=== PATIENT | female | born 1945 | race Caucasian/White ===

== ENCOUNTER → 2016-07-11 | Outpatient (CLI) | payer MEDICARE ==
--- NOTE | 2016-07-12 11:08 | MM ---
Reason for exam: screening (asymptomatic). Last mammogram was performed 1 year and 8 months ago. History: Patient is postmenopausal. Took hormonal contraceptives for 15 years beginning at age 18. Took estrogen for 5 years beginning at age 43. Took progesterone for 5 years beginning at age 43. Physical Findings: A clinical breast exam by your physician is recommended on an annual basis and results should be correlated with mammographic findings. MG 3D Screening Mammo W/Cad Bilateral CC and MLO view(s) were taken. Prior study comparison: November 16, 2014, bilateral MG screening mammo w CAD. September 29, 2013, bilateral MG screening mammo w CAD. The breast tissue is almost entirely fat. No significant changes when compared with prior studies. ASSESSMENT: Benign, BI-RAD 2 RECOMMENDATION: Routine screening mammogram of both breasts in 1 year.
== END | disposition home or self-care (01) ==
LOC: RADMAMWWP 12:29
PROVIDERS: ATTEND Family Medicine
DX: Z12.31 Encounter for screening mammogram for malignant neoplasm of breast (principal)
CPT/HCPCS: 77063; G0202

== ENCOUNTER 2016-11-13 13:07 | Inpatient (IN) | payer MEDICARE ==
[2016-11-13] MEDS ORDERED: SODIUM CHLORIDE 0.9% 500 ML IV STA (13:51)
[2016-11-13] MEDS ORDERED: ONDANSETRON 4 MG/2 ML VIAL IVP STA (13:51)
[2016-11-13 14:46] LABS: INR 1.2 (<1.2); Partial Thromboplastin Time 30.8 sec (22.0-30.0); Prothrombin Time 11.7 sec (9.0-12.0)
[2016-11-13 14:48] LABS: Basophils % (A) 1 %; CH 32.8; CHCM 33.1; Eosinophils % (A) 0 %; HCT 42.5 % (34.0-46.0); HDW 2.03; HGB 14.2 gm/dL (11.4-16.0); Luc # (Auto) 0.21; Luc % (Auto) 4; Lymphocytes # (A) 0.8 k/uL (1.0-4.8); Lymphocytes % (A) 14 %; MCH 33.1 pg (25.0-35.0); MCHC 33.3 g/dL (31.0-37.0); MCV 99.5 fL (80.0-100.0); Mean Platelet Volume 7.7; Monocytes # (A) 0.4 k/uL (0-1.0); Monocytes % (A) 7 %; Neutrophils # (A) 4.1 k/uL (1.3-7.7); Neutrophils % (A) 74 %; RBC 4.27 m/uL (3.80-5.40); RDW 12.8 % (11.5-15.5); WBC 5.5 k/uL (3.8-10.6); WBC (Perox) 5.63
[2016-11-13 14:59] LABS: Calcium 9.7 mg/dL (8.4-10.2); Potassium 4.1 mmol/L (3.5-5.1); Total Bilirubin 0.6 mg/dL (0.2-1.3); Total Protein 7.7 g/dL (6.3-8.2)
--- NOTE | 2016-11-13 15:14 | XR ---
EXAMINATION TYPE: XR KUB DATE OF EXAM: 11/13/2016 3:08 PM CLINICAL HISTORY: Weakness with nausea and vomiting. TECHNIQUE: 2 upright KUB images of the abdomen are obtained. COMPARISON: CT abdomen and pelvis March 02, 2015. FINDINGS: Scattered gas is seen in non-distended small bowel loops. Gas is in non-distended colon. Th ere is levoconvex scoliosis. There is multilevel spurring and disc space narrowing in the spine. No p neumoperitoneum is appreciated. Cardiomegaly is noted. Overlying vascular calcification is redemonstr ated. IMPRESSION: Overall nonobstructive bowel gas pattern.
[2016-11-13] MEDS: SODIUM CHLORIDE 0.9% 1,000 ML IV SCH (15:38)
[2016-11-13] MEDS ORDERED: MAGNESIUM SULFATE-D5W PMX 1 GM in DEXTROSE/WATER 1 100ML.BAG IVPB ONE (15:38)
[2016-11-13] MEDS ORDERED: NALOXONE 0.4 MG/ML 1 ML VIAL IV PRN (15:40)
--- NOTE | 2016-11-13 15:55 | ED ---
General Adult HPI - General Chief complaint: Nausea/Vomiting/Diarrhea Stated complaint: Body Ache Time Seen by Provider: 11/13/16 13:40 Source: patient, family, RN notes reviewed Mode of arrival: wheelchair Limitations: physical limitation - History of Present Illness Initial comments: 71-year-old female presents with a one-day history of nausea and loose diarrhea from her ostomy. She has a history of ischemic bowel status post resection. She also reports chills, denies fever. She hasn't had any recent travel or recent antibiotics. Denies vomiting. Patient states she has felt generalized weakness and myalgias. She has a past medical history of A. fib, and DVT and is currently on Ahlquist. She also has history diabetes and hypothyroidism. - Related Data Home Medications Medication Instructions Recorded Confirmed Atenolol [Atenolol] 25 mg PO HS 11/05/13 11/13/16 Simvastatin [Simvastatin] 10 mg PO HS 11/05/13 11/13/16 Acetaminophen Tab [Tylenol Tab] 1,000 mg PO Q6HR PRN 02/16/15 11/13/16 Ascorbic Acid [Vitamin C] 1,000 mg PO MOWEFR@1200 02/16/15 11/13/16 Cholecalciferol [Vitamin D3] 1,000 unit PO MOWEFR@1200 02/16/15 11/13/16 Melatonin 5 mg PO HS 02/16/15 11/13/16 Apixaban [Eliquis] 5 mg PO BID 11/13/16 11/13/16 Biotin 5 mg PO MOWEFR@1200 11/13/16 11/13/16 Levothyroxine Sodium [Synthroid] 112 mcg PO DAILY 11/13/16 11/13/16 Allergies Allergy/AdvReac Type Severity Reaction Status Date / Time Sulfa (Sulfonamide Allergy Rash/Hives Verified 11/13/16 14:51 Antibiotics) Review of Systems ROS Statement: Those systems with pertinent positive or pertinent negative responses have been documented in the HPI. ROS Other: All systems not noted in ROS Statement are negative. Past Medical History Past Medical History: Atrial Fibrillation, Diabetes Mellitus, Deep Vein Thrombosis (DVT), Eye Disorder, Hearing Disorder / Deafness, Hyperlipidemia, Hypertension, Osteoarthritis (OA), Thyroid Disorder Additional Past Medical History / Comment(s): NO RX FOR NIIDM SINCE 1998 EST. LT CATARACT EXC 10/2013 History of Any Multi-Drug Resistant Organisms: None Reported Past Surgical History: Bowel Resection Additional Past Surgical History / Comment(s): LT CATARACT EXC 10/2013. TOTAL LT KNEE; THYROIDECTOMY, Right total knee replacement Past Anesthesia/Blood Transfusion Reactions: No Reported Reaction Past Psychological History: No Psychological Hx Reported Smoking Status: Former smoker Past Alcohol Use History: Daily Past Drug Use History: None Reported - Past Family History Mother Family Medical History: CVA/TIA Father Family Medical History: Cancer General Exam Limitations: physical limitation General appearance: alert, in no apparent distress Head exam: Present: atraumatic, normocephalic Eye exam: Present: normal appearance, PERRL ENT exam: Present: mucous membranes dry Neck exam: Present: normal inspection, full ROM Respiratory exam: Present: normal lung sounds bilaterally. Absent: respiratory distress Cardiovascular Exam: Present: regular rate, irregular rhythm GI/Abdominal exam: Present: soft, other (Ostomy full of watery diarrhea). Absent: distended, tenderness, guarding Neurological exam: Present: alert, oriented X3 Psychiatric exam: Present: normal affect, normal mood Skin exam: Present: warm, dry. Absent: cyanosis, diaphoretic Course Vital Signs 11/13/16 13:14 Temperature 97.8 F Pulse Rate 108 H Respiratory 16 Rate Blood Pressure 141/85 O2 Sat by Pulse 96 Oximetry - Reevaluation(s) Reevaluation #1: 11/13/16 15:51 Patient is given antiemetics and IV fluids. On reevaluation she is feeling somewhat better. EKG Findings - EKG Comments: EKG Findings:: EKG shows atrial fibrillation, with a ventricular rate of 95, QRS duration 98, QTC 469 Medical Decision Making - Medical Decision Making 71-year-old female presenting with nausea and diarrhea. Patient does have an ostomy and reports loose diarrhea progressing to water over the past 24 hours. She also reports subjective chills, and body aches. No known sick contacts on history. Abdominal examination is unremarkable. Laboratory studies reveal mild hyponatremia 129, magnesium is 1.4 which is low. On reevaluation the patient is feeling somewhat better but still feels weak, she does appear dehydrated on exam and given the left foot abnormality she will be admitted for IV hydration, magnesium replacement, and further evaluation and treatment. Urinalysis is pending at the time of this dictation. - Lab Data Result diagrams: 11/13/16 14:23 11/13/16 14:23 Lab Results 11/13/16 11/13/16 11/13/16 Range/Units 14:22 14:23 14:23 WBC 5.5 (3.8-10.6) k/uL RBC 4.27 (3.80-5.40) m/uL Hgb 14.2 (11.4-16.0) gm/dL Hct 42.5 (34.0-46.0) % MCV 99.5 (80.0-100.0) fL MCH 33.1 (25.0-35.0) pg MCHC 33.3 (31.0-37.0) g/dL RDW 12.8 (11.5-15.5) % Plt Count 168 (150-450) k/uL Neutrophils % 74 % Lymphocytes % 14 % Monocytes % 7 % Eosinophils % 0 % Basophils % 1 % Neutrophils # 4.1 (1.3-7.7) k/uL Lymphocytes # 0.8 L (1.0-4.8) k/uL Monocytes # 0.4 (0-1.0) k/uL Eosinophils # 0.0 (0-0.7) k/uL Basophils # 0.0 (0-0.2) k/uL PT (9.0-12.0) sec INR (<1.2) APTT (22.0-30.0) sec Sodium 129 L (137-145) mmol/L Potassium 4.1 (3.5-5.1) mmol/L Chloride 96 L (98-107) mmol/L Carbon Dioxide 19 L (22-30) mmol/L Anion Gap 14 mmol/L BUN 19 H (7-17) mg/dL Creatinine 1.19 H (0.52-1.04) mg/dL Est GFR (MDRD) Af Amer 54 (>60 ml/min/1.73 sqM) Est GFR (MDRD) Non-Af 44 (>60 ml/min/1.73 sqM) Glucose 97 (74-99) mg/dL Calcium 9.7 (8.4-10.2) mg/dL Magnesium 1.4 L (1.6-2.3) mg/dL Total Bilirubin 0.6 (0.2-1.3) mg/dL AST 31 (14-36) U/L ALT 29 (9-52) U/L Alkaline Phosphatase 73 (38-126) U/L Troponin I (0.000-0.034) ng/mL Total Protein 7.7 (6.3-8.2) g/dL Albumin 4.8 (3.5-5.0) g/dL Amylase 39 (30-110) U/L Lipase 103 (23-300) U/L 11/13/16 11/13/16 Range/Units 14:23 14:23 WBC (3.8-10.6) k/uL RBC (3.80-5.40) m/uL Hgb (11.4-16.0) gm/dL Hct (34.0-46.0) % MCV (80.0-100.0) fL MCH (25.0-35.0) pg MCHC (31.0-37.0) g/dL RDW (11.5-15.5) % Plt Count (150-450) k/uL Neutrophils % % Lymphocytes % % Monocytes % % Eosinophils % % Basophils % % Neutrophils # (1.3-7.7) k/uL Lymphocytes # (1.0-4.8) k/uL Monocytes # (0-1.0) k/uL Eosinophils # (0-0.7) k/uL Basophils # (0-0.2) k/uL PT 11.7 (9.0-12.0) sec INR 1.2 H (<1.2) APTT 30.8 H (22.0-30.0) sec Sodium (137-145) mmol/L Potassium (3.5-5.1) mmol/L Chloride (98-107) mmol/L Carbon Dioxide (22-30) mmol/L Anion Gap mmol/L BUN (7-17) mg/dL Creatinine (0.52-1.04) mg/dL Est GFR (MDRD) Af Amer (>60 ml/min/1.73 sqM) Est GFR (MDRD) Non-Af (>60 ml/min/1.73 sqM) Glucose (74-99) mg/dL Calcium (8.4-10.2) mg/dL Magnesium (1.6-2.3) mg/dL Total Bilirubin (0.2-1.3) mg/dL AST (14-36) U/L ALT (9-52) U/L Alkaline Phosphatase (38-126) U/L Troponin I <0.012 (0.000-0.034) ng/mL Total Protein (6.3-8.2) g/dL Albumin (3.5-5.0) g/dL Amylase (30-110) U/L Lipase (23-300) U/L Disposition Clinical Impression: Dehydration, Hyponatremia, Hypomagnesemia Disposition: ADMITTED IP TO THIS [facility] Condition: Stable Referrals: Jose G Rebolledo MD [Primary Care Provider] - 1-2 days Decision to Admit Reason: Admit from EC Decision Date: 11/13/16 Decision Time: 15:54
[2016-11-13 16:32] LABS: Appearance,Urine Clear (Clear); Bilirubin,Urine Negative (Negative); Glucose,Urine (UA) Negative (Negative); Ketones,Urine Trace (Negative); Leukocyte Esterase,Urine Small (Negative); Nitrite,Urine Negative (Negative); PH, Urine 5.5 (5.0-8.0); Particle Count 2159; Protein,Urine Trace (Negative); RBC,Urine 1 /hpf (0-5); Specific Gravity,Urine 1.005 (1.001-1.035); Squamous Epithelial Cell,Urine 1 /hpf (0-4); UA Billing (MACRO vs. MICRO) MICRO; Urobilinogen,Urine <2.0 mg/dL (<2.0); WBC,Urine 1 /hpf (0-5)
[2016-11-13] MEDS ORDERED: ACETAMINOPHEN TAB 500 MG TAB PO STA (19:05)
[2016-11-13] MEDS: MELATONIN 5 MG TABLET PO SCH (20:50)
[2016-11-13] MEDS: APIXABAN 5 MG TAB PO SCH (20:50)
[2016-11-13] MEDS: ATENOLOL 25 MG TAB PO SCH ×2 (20:50→20:57)
[2016-11-14] MEDS: SODIUM CHLORIDE 0.9% 1,000 ML IV SCH ×4 (04:02→20:19)
[2016-11-14] MEDS: LEVOTHYROXINE 112 MCG TAB PO SCH (06:09)
[2016-11-14 07:55] LABS: Aty Lym Flag Slight; CH 32.6; CHCM 32.7; HCT 41.7 % (34.0-46.0); HDW 2.09; HGB 14.2 gm/dL (11.4-16.0); MCH 34.1 pg (25.0-35.0); MCV 100.3 fL (80.0-100.0); Mean Platelet Volume 7.7; RBC 4.16 m/uL (3.80-5.40); RDW 12.8 % (11.5-15.5); WBC 4.9 k/uL (3.8-10.6); WBC (Perox) 5.27
[2016-11-14 08:14] LABS: ALT 36 U/L (9-52); AST 39 U/L (14-36); Alkaline Phosphatase 61 U/L (38-126); Anion Gap 12 mmol/L; Blood Urea Nitrogen 18 mg/dL (7-17); Calcium 9.4 mg/dL (8.4-10.2); Carbon Dioxide 21 mmol/L (22-30); Chloride 97 mmol/L (98-107); Glucose 91 mg/dL (74-99); Magnesium 1.7 mg/dL (1.6-2.3); Non-African American GFR(MDRD) 51 (>60 ml/min/1.73 sqM); Potassium 4.3 mmol/L (3.5-5.1); Sodium 130 mmol/L (137-145); Total Bilirubin 0.5 mg/dL (0.2-1.3); Total Protein 7.1 g/dL (6.3-8.2)
[2016-11-14 08:49] LABS: Add Differential Manual Differential
[2016-11-14 08:51] LABS: Nucleated Red Blood Cells 0 /100 WBC (0-0); Total Cells Counted 100
[2016-11-14 08:52] LABS: Manual Review Performed; RBC Morphology Normal
[2016-11-14] MEDS: APIXABAN 5 MG TAB PO SCH ×2 (09:41→20:18)
[2016-11-14] MEDS: ACETAMINOPHEN TAB 325 MG TAB PO PRN (11:16)
[2016-11-14] MEDS: CHOLESTYRAMINE (WITH SUGAR) 4 GM PACKET PO SCH ×2 (14:15→18:34)
--- NOTE | 2016-11-14 16:58 | P.HPIM ---
History of Present Illness H&P Date: 11/13/16 Chief Complaint: Nausea, diarrhea and generalized weakness 71-year-old female presents with a past medical history of A. fib, and DVT and is currently on eliquis, diabetes and hypothyroidism came to ER with c/o one-day history of nausea and loose diarrhea from her ostomy. She has a history of ischemic bowel status post resection. She also reports chills, denies fever. She hasn't had any recent travel or recent antibiotics. Denied any unusual food intake. Denies vomiting. Patient states she has felt generalized weakness and myalgias. Review of Systems Constitutional: Patient denies any fever or chills . generalized weakness and fatigue Abdomen: Patient . Doesn't have nausea and diarrhea in the colostomy bag,. No abdominal pain Cardiovascular: Patient denies any chest pain or short of breath no palpitations. Respiratory: patient denied any cough is from production. No shortness of breath Neurologic: Patient denied any numbness or tingling headache. Musculoskeletal: Patient denies any complaints of joint swelling or deformity. Skin: Negative Psychiatric: Negative Endocrine: No heat or cold intolerance. No recent weight gain. Genitourinary: No dysuria or hematuria. All other 14 point ROS negative except the above Past Medical History Past Medical History: Atrial Fibrillation, Diabetes Mellitus, Deep Vein Thrombosis (DVT), Eye Disorder, Hearing Disorder / Deafness, Hyperlipidemia, Hypertension, Osteoarthritis (OA), Thyroid Disorder Additional Past Medical History / Comment(s): NO RX FOR NIIDM SINCE 1998 EST. LT CATARACT EXC 10/2013 History of Any Multi-Drug Resistant Organisms: None Reported Past Surgical History: Bowel Resection Additional Past Surgical History / Comment(s): LT CATARACT EXC 10/2013. TOTAL LT KNEE; THYROIDECTOMY, Right total knee replacement Past Anesthesia/Blood Transfusion Reactions: No Reported Reaction Past Psychological History: No Psychological Hx Reported Smoking Status: Former smoker Past Alcohol Use History: Daily Past Drug Use History: None Reported - Past Family History Mother Family Medical History: CVA/TIA Father Family Medical History: Cancer Medications and Allergies Home Medications Medication Instructions Recorded Confirmed Type Atenolol [Atenolol] 25 mg PO HS 11/05/13 11/13/16 History Simvastatin [Simvastatin] 10 mg PO HS 11/05/13 11/13/16 History Acetaminophen Tab [Tylenol Tab] 1,000 mg PO Q6HR PRN 02/16/15 11/13/16 History Ascorbic Acid [Vitamin C] 1,000 mg PO MOWEFR@1200 02/16/15 11/13/16 History Cholecalciferol [Vitamin D3] 1,000 unit PO MOWEFR@1200 02/16/15 11/13/16 History Melatonin 5 mg PO HS 02/16/15 11/13/16 History Apixaban [Eliquis] 5 mg PO BID 11/13/16 11/13/16 History Biotin 5 mg PO MOWEFR@1200 11/13/16 11/13/16 History Levothyroxine Sodium [Synthroid] 112 mcg PO DAILY 11/13/16 11/13/16 History Allergies Allergy/AdvReac Type Severity Reaction Status Date / Time Sulfa (Sulfonamide Allergy Rash/Hives Verified 11/13/16 14:51 Antibiotics) Physical Exam Vitals: Vital Signs Temp Pulse Resp BP Pulse Ox 11/13/16 17:06 98.1 F 75 16 145/84 99 11/13/16 13:14 97.8 F 108 H 16 141/85 96 Intake and Output 11/13/16 11/13/16 11/13/16 06:59 14:59 22:59 Output Total 300 Balance -300 Output: Stool 300 Other: Weight 102.058 kg Patient Weight 11/14/16 06:59 Weight 102.058 kg PHYSICAL EXAMINATION: Patient is lying in the bed comfortably, no acute distress, awake alert and oriented.. HEENT: Normocephalic. Neck is supple. Pupils reactive. Nostrils clear. Oral cavity is moist. Ears reveal no drainage. Neck reveals no JVD, carotid bruits, or thyromegaly. CHEST EXAMINATION: Trachea is central. Symmetrical expansion. Lung moore clear to auscultation and percussion. CARDIAC: Normal S1, S2 with no gallops. No murmurs ABDOMEN: Soft. Bowel sounds normal. No organomegaly. No abdominal bruits. Patient does have colostomy bag filled With watery stool Extremities: reveal no edema. No clubbing or cyanosis Neurologically awake, alert, oriented x3 with well-coordinated movements. No focal deficits noted Skin: Patient does have scratch us on bilateral lower extremities. No rash. Psychiatric: Operative. Nonsuicidal Musculoskeletal: No joint swelling or deformity. Normal range of motion. Results CBC & Chem 7: 11/14/16 07:34 11/14/16 07:34 Labs: Abnormal Lab Results - Last 24 Hours (Table) 11/13/16 11/13/16 11/13/16 Range/Units 14:22 14:23 14:23 Lymphocytes # 0.8 L (1.0-4.8) k/uL INR (<1.2) APTT (22.0-30.0) sec Sodium 129 L (137-145) mmol/L Chloride 96 L (98-107) mmol/L Carbon Dioxide 19 L (22-30) mmol/L BUN 19 H (7-17) mg/dL Creatinine 1.19 H (0.52-1.04) mg/dL Magnesium 1.4 L (1.6-2.3) mg/dL Urine Protein (Negative) Urine Ketones (Negative) Urine Blood (Negative) Ur Leukocyte Esterase (Negative) 11/13/16 11/13/16 Range/Units 14:23 16:13 Lymphocytes # (1.0-4.8) k/uL INR 1.2 H (<1.2) APTT 30.8 H (22.0-30.0) sec Sodium (137-145) mmol/L Chloride (98-107) mmol/L Carbon Dioxide (22-30) mmol/L BUN (7-17) mg/dL Creatinine (0.52-1.04) mg/dL Magnesium (1.6-2.3) mg/dL Urine Protein Trace H (Negative) Urine Ketones Trace H (Negative) Urine Blood Small H (Negative) Ur Leukocyte Esterase Small H (Negative) Thrombosis Risk Factor Assmnt - DVT/VTE Prophylaxis DVT/VTE Prophylaxis: Pharmacologic Prophylaxis ordered Assessment and Plan Plan: Acute nausea and diarrhea likely due to gastroenteritis, viral Hyponatremia likely hypoosmolar with volume depletion History of colostomy bag placement due to ischemic bowel Hypomagnesemia Acute kidney injury most likely prerenal Paroxysmal atrial fibrillation on anticoagulation with a liquid is History of DVT Diabetes mellitus type 2 Hyperlipidemia( Hypertension controlled Hearing disorder/deafness Hypothyroidism Osteoarthritis of multiple joints PLAN: Patient will be continued on normal saline at 100 mL per hour. C. diff toxin was negative. We'll send stool studies. Continue the home medications. And follow closely. Further recommendations based on the clinical course. Will repeat labs in the morning. Time with Patient: Greater than 30
[2016-11-14] MEDS: MELATONIN 5 MG TABLET PO SCH (20:18)
[2016-11-14] MEDS: ATENOLOL 25 MG TAB PO SCH (20:18)
[2016-11-15] MEDS: ACETAMINOPHEN TAB 325 MG TAB PO PRN (00:34)
[2016-11-15] MEDS: LEVOTHYROXINE 112 MCG TAB PO SCH (05:32)
[2016-11-15 07:26] VITALS: RESP 16
[2016-11-15 08:42] LABS: CH 33.2; CHCM 31.9; HCT 39.7 % (34.0-46.0); HDW 2.11; MCH 34.3 pg (25.0-35.0); MCHC 32.8 g/dL (31.0-37.0); MCV 104.4 fL (80.0-100.0); Macrocytosis Slight; Mean Platelet Volume 8.3; RBC 3.81 m/uL (3.80-5.40); RDW 13.2 % (11.5-15.5); WBC 4.9 k/uL (3.8-10.6)
[2016-11-15] MEDS: SODIUM CHLORIDE 0.9% 1,000 ML IV SCH ×2 (08:42→14:30)
[2016-11-15] MEDS: APIXABAN 5 MG TAB PO SCH (08:43)
[2016-11-15] MEDS: CHOLESTYRAMINE (WITH SUGAR) 4 GM PACKET PO SCH ×2 (08:43→14:31)
[2016-11-15 09:06] LABS: Anion Gap 11 mmol/L; Blood Urea Nitrogen 17 mg/dL (7-17); Calcium 8.8 mg/dL (8.4-10.2); Carbon Dioxide 18 mmol/L (22-30); Chloride 106 mmol/L (98-107); Glucose 100 mg/dL (74-99); Non-African American GFR(MDRD) >60 (>60 ml/min/1.73 sqM); Potassium 4.2 mmol/L (3.5-5.1); Sodium 135 mmol/L (137-145)
[2016-11-15 14:55] VITALS: BP 131/73; PULSE 75; TEMP 97
--- NOTE | 2016-11-15 23:43 | P.PN ---
Subjective Principal diagnosis: Acute gastroenteritis 71-year-old female presents with a past medical history of A. fib, and DVT and is currently on eliquis, diabetes and hypothyroidism came to ER with c/o one-day history of nausea and loose diarrhea from her ostomy. She has a history of ischemic bowel status post resection. She also reports chills, denies fever. She hasn't had any recent travel or recent antibiotics. Denied any unusual food intake. Denies vomiting. Patient states she has felt generalized weakness and myalgias. On 11/14/16 - SHe is being treated with IV fluids for her diarrhea. She states her diarrhea has improved. She denies having any chest pain, Cough, SOB, palpitations. No hematuria or dysuria. No headaches. She has generalized weakness. Objective - Vital Signs Vital signs: Vital Signs Temp 98.0 F 11/15/16 07:00 Pulse 68 11/15/16 07:00 Resp 16 11/15/16 07:00 BP 113/63 11/15/16 07:00 Pulse Ox 98 11/15/16 07:00 Intake & Output 11/14/16 11/15/16 11/15/16 18:59 06:59 18:59 Intake Total 240 Output Total 400 2 Balance -160 -2 Intake: Oral 240 Output: Stool 400 Urine/Stool Mix 2 Other: # Voids 4 1 3 # Bowel Movements 1 - Exam Patient is lying in the bed comfortably, no acute distress, awake alert and oriented.. HEENT: Normocephalic. Neck is supple. Pupils reactive. Nostrils clear. Oral cavity is moist. Ears reveal no drainage. Neck reveals no JVD, carotid bruits, or thyromegaly. CHEST EXAMINATION: Trachea is central. Symmetrical expansion. Lung moore clear to auscultation and percussion. CARDIAC: Normal S1, S2 with no gallops. No murmurs ABDOMEN: Soft. Bowel sounds normal. No organomegaly. No abdominal bruits. Patient does have colostomy bag filled With watery stool Extremities: reveal no edema. No clubbing or cyanosis Neurologically awake, alert, oriented x3 with well-coordinated movements. No focal deficits noted Skin: Patient does have scratch us on bilateral lower extremities. No rash. Psychiatric: Operative. Nonsuicidal Musculoskeletal: No joint swelling or deformity. Normal range of motion. - Labs CBC & Chem 7: 11/15/16 08:15 11/15/16 08:15 Labs: Abnormal Lab Results - Last 24 Hours (Table) 11/15/16 11/15/16 Range/Units 08:15 08:15 MCV 104.4 H (80.0-100.0) fL Sodium 135 L (137-145) mmol/L Carbon Dioxide 18 L (22-30) mmol/L Glucose 100 H (74-99) mg/dL Assessment and Plan Plan: Acute nausea and diarrhea likely due to gastroenteritis, viral Hyponatremia likely hypoosmolar with volume depletion History of colostomy bag placement due to ischemic bowel Hypomagnesemia Acute kidney injury most likely prerenal Paroxysmal atrial fibrillation on anticoagulation with a liquid is History of DVT Diabetes mellitus type 2 Hyperlipidemia( Hypertension controlled Hearing disorder/deafness Hypothyroidism Osteoarthritis of multiple joints PLAN: Patient will be continued on normal saline at 100 mL per hour. C. diff toxin was negative. We'll send stool studies. Continue the home medications. And follow closely. Further recommendations based on the clinical course. Will repeat labs in the morning.
--- NOTE | 2016-12-11 09:28 | DS ---
DATE OF ADMISSION: 11/13/2016 DATE OF DISCHARGE: 11/15/2016 DISCHARGE DIAGNOSES: 1. Acute nausea, vomiting and diarrhea secondary to viral gastroenteritis, improved now. 2. Hyponatremia, likely due to hypoosmolar with volume depletion, improved. 3. History of colostomy bag placement due to ischemic bowel. 4. Hypomagnesemia, replaced. 5. Acute kidney injury most likely prerenal, improved. 6. Paroxysmal atrial fibrillation on anticoagulant with Eliquis. 7. History of deep venous thrombosis. 8. Diabetes mellitus type 2. 9. Hyperlipidemia. 10. Hypertension, controlled. 12. Hearing disorder/deafness. 13. Hypothyroidism. 14. Osteoarthritis of multiple joints. HOSPITAL COURSE: Ms Lr is a 71-year-old female with no known history of atrial fibrillation and DVT on anticoagulation with Eliquis and other multiple medical problems. Admitted to the hospital with one day history of nausea and diarrhea into her colostomy bag. The patient does have ischemic bowel and status post resection and colostomy bag placement previously. The patient was admitted symptomatically with IV fluids, pain management and antiemetics. The patient did improve clinically. The patient was continued on home medications and diarrhea improved now. The patient had formed stools in the colostomy bag. Otherwise, the patient is stable to be discharged home. DISCHARGE PHYSICAL EXAMINATION: A 71-year-old female lying in bed, comfortable , awake, alert, oriented x3. Appears to be in no apparent distress. VITALS: Blood pressure 131/73. Pulse is 77. Respirations 16. Temperature afebrile. Pulse ox 98% on room air. DISCHARGE PHYSICAL EXAMINATION: A 71-year-old female lying in bed, comfortable , awake, alert, oriented x3.Appears to be in no apparent distress. HEENT: Atraumatic, normocephalic. Neck is supple. No JVD. CVS: S1 and S2 heard. No murmurs, no gallops, no rub. LUNGS: Bilateral air entry is present. No wheezing. No crackles. Nonlabored breathing. ABDOMEN: Soft, nontender. Bowel sounds are present. AUTH[employer] MOTIVATIONAL: Awake, alert and oriented x3. No focal deficit. EXTREMITIES: No edema. Pulses are palpable bilaterally. No clubbing or cyanosis. PSYCHIATRY: Cooperative. LABORATORY DATA: Reviewed. DISCHARGE PHYSICAL EXAM: None. Discharge medications include: 1. Atenolol 25 mg p.o. at bedtime. 2. Simvastatin 10 mg p.o. at bedtime. 3. Tylenol 1000 mg p.o. q.6 hourly p.r.n. for pain. 4. Ascorbic acid 1000 mg p.o. Friday, Friday, Friday. 5. Vitamin D3, 1000 units p.o. Friday, Friday, Friday. 6. Melatonin 5 mg p.o. at bedtime. 7. Eliquis 5 mg p.o. b.i.d. 8. Biotin 5 mg p.o. Friday, Friday, Friday. 9. Levothyroxine 112 mcg p.o. daily. Patient will be discharged home in stable condition. Activity as tolerated. Heart healthy diet. Follow with Dr. Rebolledo. RUPAL
== END 2016-11-15 16:02 | disposition home or self-care (01) | DRG 683 ==
LOC: EC 13:07 → 4MS4W 15:41
PROVIDERS: ADMIT Internal Medicine; ATTEND Internal Medicine
DX: N17.9 Acute kidney failure, unspecified (principal); E87.1 Hypo-osmolality and hyponatremia; I48.0 Paroxysmal atrial fibrillation; E11.9 Type 2 diabetes mellitus without complications; E83.42 Hypomagnesemia; E86.9 Volume depletion, unspecified; I10 Essential (primary) hypertension; E86.0 Dehydration; A08.4 Viral intestinal infection, unspecified; E89.0 Postprocedural hypothyroidism; H91.90 Unspecified hearing loss, unspecified ear; M15.9 Polyosteoarthritis, unspecified; R68.83 Chills (without fever); S80.811A Abrasion, right lower leg, initial encounter; S80.812A Abrasion, left lower leg, initial encounter; R53.1 Weakness; M79.1 Myalgia; E78.5 Hyperlipidemia, unspecified; Z86.718 Personal history of other venous thrombosis and embolism; Z93.3 Colostomy status; Z79.899 Other long term (current) drug therapy; Z79.01 Long term (current) use of anticoagulants; Z87.891 Personal history of nicotine dependence; Z88.2 Allergy status to sulfonamides; Z87.19 Personal history of other diseases of the digestive system; Z82.3 Family history of stroke; Z80.9 Family history of malignant neoplasm, unspecified; Z98.42 Cataract extraction status, left eye; Z96.653 Presence of artificial knee joint, bilateral; Z90.49 Acquired absence of other specified parts of digestive tract; Z86.39 Personal history of other endocrine, nutritional and metabolic disease
CPT/HCPCS: 36415; 74000; 80048; 80053; 81001; 82150; 83690; 83735; 84484; 85025; 85027; 85610; 85730; 87324; 93005; 96361; 96365; 96375; 99285

== ENCOUNTER 2021-07-03 16:11 | Emergency (ER) | payer MEDICARE ==
[2021-07-03 16:32] VITALS: RESP 18
[2021-07-03] MEDS ORDERED: OXYMETAZOLINE 0.05% NASL SPRAY 1 SPRAY BOTTLE NASAL STA (16:40)
[2021-07-03] MEDS ORDERED: AMOXIC-POT CLAV 875-125MG 1 EACH TAB PO STA (18:02)
--- NOTE | 2021-07-03 18:07 | ED ---
ENT HPI - General Chief complaint: ENT Stated complaint: nosebleed Time Seen by Provider: 07/03/21 16:40 Source: patient, EMS Mode of arrival: EMS Limitations: no limitations - History of Present Illness Initial comments: Patient is a 68-year-old female who presents to emergency department with chief complaint of nosebleed. Patient states the nosebleed began except late this afternoon and she has not been able to make it stop. Patient reports bleeding out of both nostrils, worse on the right side. She is on Eliquis for atrial fibrillation. Patient has no other concerns at this time including fever, chills, shortness of breath, dizziness, chest pain, abdominal pain, nausea, vomiting, and dysuria. - Related Data Home Medications Medication Instructions Recorded Confirmed atenoloL 12.5 mg PO DAILY 11/05/13 07/03/21 Apixaban [Eliquis] 5 mg PO BID 11/13/16 07/03/21 Ascorbic Acid [Vitamin C] 1,000 mg PO DAILY 07/03/21 07/03/21 Cholecalciferol [Vitamin D3 (25 25 mcg PO DAILY 07/03/21 07/03/21 Mcg = 1000 Iu)] Levothyroxine Sodium [Synthroid] 150 mcg PO DAILY 07/03/21 07/03/21 Simvastatin 10 mg PO HS 07/03/21 07/03/21 Previous Rx's Medication Instructions Recorded Amoxicillin/Potassium Clav 1 tab PO Q12HR 7 Days #14 tab 07/03/21 [Augmentin 875-125 Tablet] Allergies Allergy/AdvReac Type Severity Reaction Status Date / Time Sulfa (Sulfonamide Allergy Rash/Hives Verified 07/03/21 17:21 Antibiotics) Review of Systems ROS Statement: Those systems with pertinent positive or pertinent negative responses have been documented in the HPI. ROS Other: All systems not noted in ROS Statement are negative. Past Medical History Past Medical History: Atrial Fibrillation, Diabetes Mellitus, Deep Vein Thrombosis (DVT), Eye Disorder, Hearing Disorder / Deafness, Hyperlipidemia, Hypertension, Osteoarthritis (OA), Thyroid Disorder Additional Past Medical History / Comment(s): NO RX FOR NIIDM SINCE 1998 EST. LT CATARACT EXC 10/2013 History of Any Multi-Drug Resistant Organisms: None Reported Past Surgical History: Bowel Resection Additional Past Surgical History / Comment(s): LT CATARACT EXC 10/2013. TOTAL LT KNEE; THYROIDECTOMY, Right total knee replacement Past Anesthesia/Blood Transfusion Reactions: No Reported Reaction Past Psychological History: No Psychological Hx Reported Past Alcohol Use History: Daily Past Drug Use History: None Reported - Past Family History Mother Family Medical History: CVA/TIA Father Family Medical History: Cancer General Exam Limitations: no limitations General appearance: alert Head exam: Present: atraumatic, normocephalic, normal inspection Eye exam: Present: normal appearance, PERRL, EOMI. Absent: scleral icterus, conjunctival injection, periorbital swelling ENT exam: Present: normal external ear exam, other (Otoscope examination reveals active bleeding from the right nare. No bleeding from the left nare) Neck exam: Present: normal inspection Respiratory exam: Present: normal lung sounds bilaterally. Absent: respiratory distress, wheezes, rales, rhonchi, stridor Cardiovascular Exam: Present: regular rate, normal rhythm, normal heart sounds. Absent: systolic murmur, diastolic murmur, rubs, gallop, clicks GI/Abdominal exam: Present: soft, normal bowel sounds. Absent: distended, tenderness, guarding, rebound, rigid Neurological exam: Present: alert, oriented X3, CN II-XII intact Psychiatric exam: Present: normal affect, normal mood Skin exam: Present: warm, dry, intact, normal color. Absent: rash Course Vital Signs 07/03/21 07/03/21 07/03/21 16:22 16:35 18:34 Temperature 97.8 F 98.8 F Pulse Rate 88 70 64 Respiratory 18 18 Rate Blood Pressure 230/114 199/105 160/66 O2 Sat by Pulse 96 98 Oximetry Medical Decision Making - Medical Decision Making This is a 76-year-old female who presents with the epistaxis. Thorough history and examination were performed. Oxymetazoline was sprayed in both nares with nasal clamping for 15 minutes. Patient continued to bleed from the right nare. I then inserted a Rhino Rocket in the right nare. Patient was observed for 30 minutes with no further bleeding. Patient was given one dose of Augmentin in the emergency department. She will be discharged with Augmentin prescription and instructed to follow-up with ENT specialist at earliest available appointment. Return parameters discussed. Patient verbalizes understanding and is agreeable to plan. Dr. Lee is my attending. Disposition Clinical Impression: Epistaxis Disposition: HOME SELF-CARE Condition: Good Instructions (If sedation given, give patient instructions): Nosebleed (ED) Additional Instructions: Take Augmentin as prescribed. Follow-up with ear nose throat specialist at earliest available appointment. Return to the emergency department if you experience new, concerning, or worsening symptoms. Prescriptions: Amoxicillin/Potassium Clav [Augmentin 875-125 Tablet] 1 tab PO Q12HR 7 Days #14 tab Is patient prescribed a controlled substance at d/c from ED?: No Referrals: Jose G Rebolledo MD [Primary Care Provider] - 1-2 days Nathan Barlow MD [STAFF PHYSICIAN] - 1-2 days Time of Disposition: 18:05
[2021-07-03 18:36] VITALS: BP 160/66; PULSE 64; TEMP 98.8
== END 2021-07-03 18:34 | disposition home or self-care (01) ==
LOC: EC 16:11
DX: R04.0 Epistaxis (principal); Z79.01 Long term (current) use of anticoagulants; Z88.2 Allergy status to sulfonamides; I48.91 Unspecified atrial fibrillation; E11.9 Type 2 diabetes mellitus without complications; Z86.718 Personal history of other venous thrombosis and embolism; E78.5 Hyperlipidemia, unspecified; I10 Essential (primary) hypertension; M19.90 Unspecified osteoarthritis, unspecified site; E07.9 Disorder of thyroid, unspecified; Z96.651 Presence of right artificial knee joint
CPT/HCPCS: 30903; 99283

== ENCOUNTER → 2022-05-17 | Outpatient (CLI) | payer MEDICARE ==
--- NOTE | 2022-05-20 08:40 | MM ---
Reason for Exam: Screening (asymptomatic). Last mammogram was performed 5 year(s) and 10 month(s) ago. Patient History: Menarche at age 9. First Full-Term at age 17. Left ovary removed at age 43. Right ovary removed at age 43. Hysterectomy at age 43. Postmenopausal. Estrogen for 5 years from age 43 until age 48. Progesterone for 5 years from age 43 until age 48. Hormonal Contraceptives, starting at age 18 for 15 years. Risk Values: Mamta 5 year model risk: 1.3%. NCI Lifetime model risk: 2.2%. Prior Study Comparison: 09/29/2013 Bilateral Screening Mammogram, [facility]. 11/16/2014 Bilateral Screening Mammogram, [facility]. 07/11/2016 Bilateral Screening Mammogram, [facility]. Tissue Density: There are scattered fibroglandular densities. Findings: Analyzed By CAD. There is no suspicious group of microcalcifications in either breast. Benign calcifications within both breasts. No new suspicious mass within the left breast. Ovoid high density well-circumscribed mass within the upper outer quadrant of the right breast posterior depth measuring up to 8 mm. Overall Assessment: Incomplete: need additional imaging evaluation, BI-RAD 0 Management: Diagnostic Breast Ultrasound of the right breast. A clinical breast exam by your physician is recommended on an annual basis and results should be correlated with mammographic findings. [facility] will attempt to contact patient to return for supplemental views and ultrasound if indicated. Electronically signed and approved by: Anurag Figueroa D.O.
== END | disposition home or self-care (01) ==
LOC: RADMAMWWP 12:42
PROVIDERS: ATTEND Family Medicine
DX: Z12.31 Encounter for screening mammogram for malignant neoplasm of breast (principal); Z78.0 Asymptomatic menopausal state
CPT/HCPCS: 77067

== ENCOUNTER → 2022-05-24 | Outpatient (CLI) | payer MEDICARE ==
--- NOTE | 2022-05-27 09:09 | USB ---
Reason for Exam: Additional evaluation requested from abnormal screening. Patient History: Menarche at age 9. First Full-Term at age 17. Left ovary removed at age 43. Right ovary removed at age 43. Hysterectomy at age 43. Postmenopausal. Estrogen for 5 years from age 43 until age 48. Progesterone for 5 years from age 43 until age 48. Hormonal Contraceptives, starting at age 18 for 15 years. Risk Values: Mamta 5 year model risk: 1.3%. NCI Lifetime model risk: 2.2%. Technique: Method: Targeted. Prior Study Comparison: 11/16/2014 Bilateral Screening Mammogram, [facility]. 07/11/2016 Bilateral Screening Mammogram, [facility]. 05/17/2022 Bilateral MG screening mammo w CAD, [facility]. Findings: The upper outer quadrant of the right breast, the axilla of the right breast and the retroareolar of the right breast were scanned. No suspicious solid or cystic masses are identified. Benign appearing axillary lymphadenopathy is identified. No definite ultrasound abnormality to correlate with mammographic findings. On mammography this density appears to have been present in 2014. Short-term follow-up. Overall Assessment: Benign, BI-RAD 2 Management: Diagnostic Mammogram of the right breast in 6 months. A clinical breast exam by your physician is recommended on an annual basis and results should be correlated with mammographic findings. This exam should not preclude additional follow-up of suspicious palpable abnormalities. Results were given to the patient verbally at the time of exam. Electronically signed and approved by: Arturo Johnson D.O. Radiologis
== END | disposition home or self-care (01) ==
LOC: RADUSWWP 14:39
PROVIDERS: ATTEND Family Medicine
DX: R92.8 Other abnormal and inconclusive findings on diagnostic imaging of breast (principal); Z78.0 Asymptomatic menopausal state